=== PATIENT | female | born 1970 ===

== ENCOUNTER 2016-09-10 15:21 | Outpatient (CLI) | payer OTHER ==
--- NOTE | 2016-09-10 16:32 | XRay Report ---
RIGHT KNEE THREE VIEWS: 09/10/16 16:12 CLINICAL: Right knee pain. FINDINGS: Mild osteopenia. No fracture or dislocation. Osteoarthritis of the lateral joint space with mild narrowing of the joint space and small osteophytes. Patellofemoral joint osteoarthritis. There is a questionable small knee joint effusion. 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 Suspect a small knee joint effusion.
== END 2016-09-10 15:22 | disposition home or self-care (01) ==
LOC: SPVIMAG 15:21
PROVIDERS: ATTEND Family Medicine
DX: M17.11 Unilateral primary osteoarthritis, right knee (principal); M85.88 Other specified disorders of bone density and structure, other site; M25.761 Osteophyte, right knee

== ENCOUNTER 2016-11-30 08:39 | Outpatient (CLI) | payer OTHER ==
--- NOTE | 2016-11-30 14:51 | Cat Scan Report ---
CT abdomen and pelvis without contrast: Abdominal pain. Transverse images were obtained to low chest to the ischium with coronal and sagittal 2-D reformatted images. Oral contrast administered. The visualized lung bases are unremarkable. The abdominal and retroperitoneal organs are unremarkable as well. Scattered mural calcification is noted in the abdominal aorta however the aorta is normal in size and contour. The partially opacified bowel and mesentery is generally unremarkable. No inflammatory changes noted. No adenopathy apparent. Reproductive organs removed but the pelvis is not otherwise remarkable. The osseous structures are generally unremarkable. Impressions: No pathology identified to explain abdominal pain.
== END 2016-11-30 08:40 | disposition home or self-care (01) ==
LOC: SPVIMAG 08:39
PROVIDERS: ATTEND Family Medicine
DX: R10.0 Acute abdomen (principal); I70.0 Atherosclerosis of aorta; Z90.79 Acquired absence of other genital organ(s)
CPT/HCPCS: 74176